=== PATIENT | male | born 1990 | race Caucasian/White ===

== ENCOUNTER 2023-05-15 09:57 | Emergency (ER) | payer BC, SELFPAY ==
--- NOTE | ~2023-05-15 | CT_ITS ---
EXAMINATION: CT abdomen pelvis wo con DATE: 05/15/2023 11:41 INDICATION: Left flank and groin pain TECHNIQUE: Computed tomography (CT) of the abdomen and pelvis was performed without intravenous contr ast. The dose-length product was 588.51 mGy-cm. COMPARISON: None. FINDINGS: Lung bases are unremarkable. Heart size normal. No significant pleural or pericardial effus ion. There are no nonobstructing left renal stones. There is left hydroureteronephrosis with periuret eral edema. No obstructing stone or mass. Bladder is unremarkable. The liver, spleen, pancreas, adrenal glands and right kidney are unremarkable. Gallbladder is present . IMPRESSION: 1. Left hydroureteronephrosis with periureteral edema. Findings suspicious for ascending urinary trac t infection. No obstructing stone or mass. 2: Nonobstructing left nephrolithiasis. Reviewed, dictated and finalized at location A. IMPRESSION: 1. Left hydroureteronephrosis with periureteral edema. Findings suspicious for ascending urinary tract infection. No obstructing stone or mass. 2: Nonobstructing left nephrolithiasis.
[2023-05-15 09:59] VITALS: BP 209/152; PULSE 68; RESP 19; TEMP 36.6; O2SAT 100
--- NOTE | 2023-05-15 10:27 | ED.ABDPAIN ---
HPI - Abdominal Pain General Chief Complaint: Abdominal Pain Stated Complaint: lower abd pain, n/v Time Seen by Provider: 05/15/23 10:13 History of Present Illness HPI narrative: 32-year-old male with history of hypertension presents to the emergency department for left lower quadrant abdominal pain and left flank pain that started this morning. Patient states the pain as and flows and is associated with nausea, emesis. Denies known history of kidney stones, however does suspect that he had a kidney stone previously. He denies history of diverticulitis. Last bowel movement was yesterday and normal. Denies diarrhea, fever, melena or hematochezia, dysuria or hematuria. Patient found to be hypertensive at 209/152 on arrival. States he ran out of his lisinopril 10mg a few weeks ago. He denies symptoms of hypertensive emergency including chest pain, shortness of breath, vision changes, focal numbness or weakness. Related Data Allergies Allergy/AdvReac Type Severity Reaction Status Date / Time amoxicillin Allergy Unknown Hives Verified 08/10/22 08:37 Review of Systems Review of Systems: CONSTITUTIONAL: Denies fever, chills, or sweats. EYES: Denies visual changes, redness, or discharge. ENT: Denies rhinorrhea, congestion, sore throat, or otalgia. CARDIOVASCULAR: Denies chest pain, palpitations, or edema. RESPIRATORY: Denies cough or dyspnea. GASTROINTESTINAL: See HPI GENITOURINARY: Denies dysuria or hematuria. SKIN: Denies rash or itching. MUSCULOSKELETAL: Denies back pain, joint pain, or myalgia. NEUROLOGIC: Denies headache, numbness, or weakness. PSYCHIATRIC: Denies anxiety or depression. [facility] Past Medical History Medical History Acute stress disorder Anal fissure BMI 30.0-30.9,adult Elevated BP without diagnosis of hypertension Encounter to establish care High blood pressure History of pyloric stenosis as a child Panic attack as reaction to stress Poison fuad dermatitis Seasonal allergies Skin lesion of back Smokeless tobacco use Testicular mass Family History Family History Mother Hypertension Father Hypertension Social History Social History Smoking status: Never smoker Tobacco type: smokeless tobacco Smokeless tobacco user: chewing tobacco Alcohol intake: never Substance use: never Lack of Transportation: No Lack of Food: Never True Current Housing: I Have Housing Concerned About Future Housing: No Difficulty Paying Gas/Electric Bills: No Difficulty Paying for Meds: No Currently Unemployed: No Education: High School Diploma/GED Difficulty w/ Childcare or Family Care: No Exam Narrative: GENERAL: Well-appearing, well-nourished, and in no acute distress. HEAD: Normocephalic, atraumatic. EYES: PERRLA and EOMI. ENT: Nares clear, no rhinorrhea or epistaxis. Mucous membranes moist. NECK: Supple. CHEST: Clear to auscultation. No respiratory distress. HEART: Regular rate and rhythm. No murmur heard. Normal peripheral pulses. ABDOMEN: Soft, nontender, nondistended, normal active bowel sounds. no rebound, guarding or rigidity. No CVA tenderness. EXTREMITIES: Normal range of motion. No edema. SKIN: Warm, dry, no rash. NEURO: No focal deficits. Alert and oriented x3 Course Vital Signs Vital signs: Vital Signs Temperature 36.6 C 05/15/23 09:59 Pulse Rate 68 05/15/23 09:59 Respiratory Rate 19 05/15/23 09:59 Blood Pressure 209/152 H 05/15/23 09:59 Pulse Oximetry 100 05/15/23 09:59 Temperature 36.6 C 05/15/23 09:59 Pulse Rate 67 05/15/23 12:14 Respiratory Rate 16 05/15/23 12:14 Blood Pressure 146/91 H 05/15/23 12:14 Pulse Oximetry 100 05/15/23 09:59 MDM - Abdominal Pain MDM Narrative Medical decision making narrative: 32-year-old male history
[2023-05-15] MEDS: SODIUM CHLORIDE 0.9% IV 1,000 ML 999 ML IV CONT (10:42)
[2023-05-15] MEDS: ONDANSETRON INJ 4 MG/2 ML VIAL IV PUSH (10:42)
[2023-05-15] MEDS: MORPHINE SULFATE (*CRX) 4 MG/ML INJ IV PUSH (10:42)
[2023-05-15 10:51] LABS: Basophils Percent Auto 0.4 % (0.2-1.2); Eosinophils Absolute Auto 0.1 K/mm3 (0-0.3); Eosinophils Percent Auto 1.3 % (0-4.4); Hematocrit 49.1 % (42.0-52.0); Hemoglobin 16.2 g/dL (14.0-18.0); Immature Granulocyte Absolute 0.02 K/mm3 (0.00-0.031); Immature Granulocyte Percent A 0.3 % (0-0.5); Lymphocytes Absolute Auto 2.01 K/mm3 (0.9-3.2); Mean Corpuscular Hemoglobin 29.4 pg (26-34); Mean Corpuscular Volume 89.1 fl (80-100); Mean Platelet Volume 10.4 fl (7.4-10.4); Monocytes Absolute Auto 0.5 K/mm3 (0.1-0.6); Monocytes Percent Auto 6.4 % (2.6-8.5); Neutrophils Absolute Auto 4.8 K/mm3 (1.3-6.7); Neutrophils Percent Auto 64.6 % (45.5-73.1); Platelet Count Result 288 k/mm3 (150-375); Red Blood Count 5.51 M/mm3 (4.6-6.20); White Blood Count 7.5 K/mm3 (4.5-10.0)
[2023-05-15 10:59] LABS: Lactic Acid Reflex 1.5 mmol/L (0.7-2.0)
[2023-05-15 11:01] LABS: Alanine Aminotransferase 32 U/L (6-50); Albumin Level 4.6 g/dL (3.5-5.1); Alkaline Phosphatase 73 U/L (38-126); Anion Gap 3 mmol/L (8-16); Aspartate Amino Transferase 25 U/L (17-59); Bilirubin,Total 1.1 mg/dL (0.2-1.3); Blood Urea Nitrogen 13 mg/dL (9-20); Calcium 9.7 mg/dL (8.4-10.2); Carbon Dioxide 32 mmol/L (22-30); Chloride 105 mmol/L (98-107); Estimated CRCL calculation 94 ml/min; Estimated Glomerular Filt Rate > 60; Glucose 124 mg/dL (65-110); Lipase 44 U/L (23-300); Sodium 140 mmol/L (137-145)
[2023-05-15 11:06] LABS: Bacteria Urine None Seen /hpf; Non Pathogenic Casts 0-2; RBC Urine >100 /hpf (0-2); Squamous Epithelial Cell Urine None Seen /hpf (Few); WBC Urine 0-5 /hpf (0-3)
[2023-05-15 11:12] LABS: Appearance Urine Sl Cloudy (Clear); Color Urine Yellow (Yellow)
[2023-05-15 11:13] LABS: Add Urine Microscopic? YES; Bilirubin Urine 1+ (Negative); Blood Urine 3+ (Negative); Glucose Urine UA Negative (Negative); Ketones Urine Negative (Negative); Leukocyte Esterase Ur Negative LEU/UL (Negative); Nitrate Urine Negative (Negative); Protein Urine 1+ mg/dL (Negative); Urobilinogen Urine 0.2 mg/dL (<2.0)
[2023-05-15 12:14] VITALS: BP 146/91; PULSE 67; RESP 16
[2023-05-15] MEDS: lisinopriL 10 MG TABLET PO (12:17)
== END 2023-05-15 12:27 | disposition home or self-care (01) ==
PROVIDERS: Emergency Medicine; Emergency Provider Physician Assistant; PCP Nurse Practitioner Family
DX: N13.30 Unspecified hydronephrosis (principal); R31.9 Hematuria, unspecified; I10 Essential (primary) hypertension; F17.220 Nicotine dependence, chewing tobacco, uncomplicated; N20.0 Calculus of kidney
CPT/HCPCS: 36415; 74176; 80053; 81001; 83605; 83690; 85025; 96361; 96374; 96375; 99284; A9270; J2270; J2405; J7030